=== PATIENT | male | born 1950 | race Caucasian/White ===

== ENCOUNTER 2017-04-23 21:24 | Emergency (ER) | payer OTHER ==
[2017-04-23 21:38] VITALS: BP 136/87; PULSE 78; RESP 16; TEMP 98.2; O2SAT 93
--- NOTE | 2017-04-23 21:52 | EDPHY ---
H & P Stated Complaint: Laceration to R thumb base. HPI/ROS: CHIEF COMPLAINT: Hand laceration HISTORY OF PRESENT ILLNESS: This is a healthy 66-year-old male who cut the base of his right thumb with a kitchen knife. He is right-hand dominant. He denies numbness or weakness. No other injuries. He is not certain of his tetanus status but will contact his primary care physician to find out. REVIEW OF SYSTEMS: Recent fever, cough or cold, chest pain, abdominal pain. Past medical history: Negative Past surgical history: Inguinal hernia repair Social history: Retired software manager. He is with 2 children. Rare alcohol use. No tobacco. General Appearance: Alert. Vital signs reviewed. Blood pressure 136/87. Respiratory: Lungs are clear to auscultation; no wheezes, rales, or rhonchi. Cardiovascular: Regular rate and rhythm; no murmur, rub, or gallop. Skin: Warm and dry, no rashes on exposed skin, normal color. Back: Nontender to palpation over the thoracolumbar spine. No CVAT. Extremities: Cm linear laceration base of the right thumb, palmar aspect, extending onto the hypo thenar eminence. No muscle or tendon involvement. Neurological: Alert and oriented. Moving all four extremities easily and equally. Sensation intact to light touch over his right hand. Two-point discrimination intact. Full strength with flexion extension testing of the right thumb. Psychiatric: Normal affect. - Personal History Current Tetanus/Diphtheria Vaccine: Unsure Current Tetanus Diphtheria and Acellular Pertussis (TDAP): Unsure Tetanus Vaccine Date: <states less than 5 years ago. - Medical/Surgical History Hx Asthma: No Hx Chronic Respiratory Disease: No Hx Diabetes: No Hx Cardiac Disease: No Hx Renal Disease: No Hx Cirrhosis: No Hx Alcoholism: No Hx HIV/AIDS: No Hx Splenectomy or Spleen Trauma: No Other PMH: Arnoldo inguinal hernia repair. - Social History Smoking Status: Never smoked Constitutional: Initial Vital Signs Temperature (C) 36.8 C 04/23/17 21:34 Heart Rate 78 04/23/17 21:34 Respiratory Rate 16 04/23/17 21:34 Blood Pressure 136/87 H 04/23/17 21:34 O2 Sat (%) 93 04/23/17 21:34 O2 Delivery Mode Room Air Allergies/Adverse Reactions: No Known Allergies Allergy (Unverified 04/23/17 21:38) Home Medications: Medication Instructions Recorded Aspirin 81mg (*) 04/23/17 Medical Decision Making Procedures: Procedure: Laceration repair. Verbal consent was obtained from the patient. The 2 cm laceration on the right was anesthetized in the usual fashion. The wound was irrigated, draped and explored to its base with a gloved finger. There were no deep structures involved. No tendon injury was identified. The wound was repaired with for 0 Ethilon . The wound repair was simple, single layer. 6 interrupted stitches were placed. The procedure was performed by myself. ED Course/Re-evaluation: 2 cm hand laceration. No evidence of muscle or tendon involvement. No vascular injury. He is neurovascularly intact. I do not suspect foreign body or bone injury. Laceration was repaired in the emergency department. Departure - Departure Disposition: Home, Routine, Self-Care Clinical Impression: Laceration Condition: Good Instructions: Laceration (ED) Additional Instructions: There are 6 stitches. You can remove the bulky dressing in 24 hours and gently wash your hands with soap and water. After that it is fine to place a smaller dressing. You should have the stitches taken out in ten days. Referrals: Joy Gil MD [Primary Care Provider] - As per Instructions
== END 2017-04-23 22:30 | disposition home or self-care (01) ==
LOC: CED 21:24
PROC: 0HQFXZZ Repair Right Hand Skin, External Approach (ICD-10-PCS; principal; 2017-04-23)
DX: S61.411A Laceration without foreign body of right hand, initial encounter (principal); W26.0XXA Contact with knife, initial encounter